=== PATIENT | male | born 1980 | race Caucasian/White ===

== ENCOUNTER 2019-01-13 08:30 | Outpatient (CLI) | payer BC ==
--- NOTE | 2019-01-13 13:49 | NM ---
RADIONUCLIDE HEPATOBILIARY SCAN AND GALLBLADDER EJECTION FRACTION: HISTORY: Abdominal pain. FINDINGS: Early images show physiologic uptake of radiotracer throughout the liver. The gallbladder is seen at 14 minutes. Uptake is apparent within the small bowel at 41 minutes. After the administration of 8 oz of a fatty meal in place of pharmacologic intervention, there is progressive excretion of radiotr acer from the gallbladder to the small bowel. Ejection fraction is calculated at 61%. IMPRESSION: Normal hepatobiliary scan and gallbladder ejection fraction. POS: MADDY
== END 2019-01-13 08:31 | disposition home or self-care (01) ==
LOC: NM 08:30
PROVIDERS: ATTEND Specialist
DX: R10.11 Right upper quadrant pain (principal)
CPT/HCPCS: 36415; 78227; 80053; 83690; 85025; A9537

== ENCOUNTER 2020-04-29 07:37 | Outpatient (CLI) | payer BC ==
--- NOTE | 2020-04-29 09:27 | ULT ---
RIGHT UPPER QUADRANT ABDOMINAL ULTRASOUND: COMPARISON: None. HISTORY: Right upper quadrant abdominal pain and gallbladder polyps. TECHNIQUE: Multiplanar, rasmussen scale, and color Doppler images were obtained in a right upper quadrant abdominal u ltrasound. FINDINGS: The liver is normal in echogenicity without focal lesions or intrahepatic ductal dilatation. There a re a few echogenic dependent foci within the gallbladder which may represent sludge or nonshadowing s tones. No obvious polyp is seen in the gallbladder. There is no gallbladder wall thickening or nina cholecystic fluid. The common bile duct is normal measuring 5 mm. The visualized portions of the pancreas are unremarkable. The right kidney is normal in echogenicity without hydronephrosis or calculus and measures 9.8 cm in length. IMPRESSION: Gallbladder sludge versus nonshadowing stones. POS: EAA
== END 2020-04-29 07:38 | disposition home or self-care (01) ==
LOC: SCSULT 07:37
PROVIDERS: ATTEND Internal Medicine
DX: K21.9 Gastro-esophageal reflux disease without esophagitis (principal); R10.11 Right upper quadrant pain; K82.4 Cholesterolosis of gallbladder; B96.81 Helicobacter pylori [H. pylori] as the cause of diseases classified elsewhere
CPT/HCPCS: 76705